=== PATIENT | male | born 2000 | race American Indian/Alaskan Native ===

== ENCOUNTER 2020-08-07 14:54 | Emergency (ER) | payer OTHER ==
--- NOTE | 2020-08-07 16:48 | XRay Report ---
CHEST 2 VIEWS INDICATION: shortness of breath. COMPARISON: FINDINGS: Support devices: None. Heart: Within normal limits. Lungs: No acute air space or interstitial disease. Pleura: No significant pleural effusion. No pneumothorax. Additional findings: None. IMPRESSION: 1. No acute findings. Signer Name: Jaya Robledo MD Signed: 08/07/2020 4:43 PM Workstation Name: [id number]
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
[2020-08-07 18:06] VITALS: BP 130/77
== END 2020-08-07 18:10 ==
LOC: ED 14:54
DX: F41.0 Panic disorder [episodic paroxysmal anxiety] (principal); J45.909 Unspecified asthma, uncomplicated; V49.49XA Driver injured in collision with other motor vehicles in traffic accident, initial encounter; Y93.89 Activity, other specified; Y92.488 Other paved roadways as the place of occurrence of the external cause; Y99.8 Other external cause status
CPT/HCPCS: 71046; 99283